=== PATIENT | female | born 1955 | race Two or more races ===

== ENCOUNTER → 2016-09-10 | Day surgery (SDC) | payer OTHER ==
[~2016-09-10] VITALS: Ht 154.9 cm; Wt 79.2 kg
[~2016-09-10] MED LIST: ATOR10TA15 PO; BACITRACIN TOP OINT 15 GM TUBE ONE; BUPIVACAINE/EPINEPHRINE 0.25% 50 ML VIAL ONE; CHLORHEXIDINE GLUCONATE 2 % 1 PACK (2 CLOTHS) TOPICAL PRN; DO NOT ADM ANY ANTICOAGULANT DRUGS PRN; FAMOTIDINE 20 MG/2 ML VIAL ONE; GLIM2TAB PO; HYDR12.57 PO; INSULIN HUMAN REGULAR 1,000 UNITS/10 ML VIAL SQ PRN; KETOROLAC TROMETHAMINE 60 MG/2 ML (IM) VIAL IM ONE; LACTATED RINGER'S 1000 ML IV PRN; LOSA50TA PO; METF1000 PO; METOPROLOL TARTRATE 25 MG TAB PO PRN; MIDAZOLAM HCL 2 MG/2 ML VIAL ONE; ONDANSETRON HCL 4 MG/2 ML VIAL IV PUSH ONE; POVIDONE IODINE 5% (ANTISEPSIS KIT) 4 APPLICATIONS EACH NARE PRN; PROPOFOL 200 MG/20 ML AMP IV ONE; SILVER NITR/POTASSIUM NITRATE APPLICATORS TOPICAL ONE; SODIUM CHLORID 0.9% 500 ML IV PRN; ceFAZolin 1,000 MG/NS 100 ML IV SCH; oxyCODONE/ACETAMINOPHEN 5 MG/325 MG TAB PO PRN
[2016-09-10 06:02] VITALS: BP 160/91; PULSE 60; RESP 18; TEMP 98.3; O2SAT 100
--- NOTE | 2016-09-10 07:02 | EKG ---
Date Performed: 09/10/2016 Time Performed: 06:29:37 PTAGE: 61 years EKG: SINUS BRADYCARDIA NONSPECIFIC T-WAVE ABNORMALITY BORDERLINE ECG No significant change from prior electrocardiogram. PREVIOUS TRACING : 09/05/2006 13.28 DOCTOR: Say Holley Interpretating Date/Time 09/10/2016 07:01:57
--- NOTE | 2016-09-10 08:19 | PD.OP ---
Operative Report Date of Surgery: Sep 10, 2016 Preoperative Diagnosis: (1) Pruritus vulvae (2) Disorder of vulva (3) Atrophic vulva Postoperative Diagnosis: (1) Pruritus vulvae (2) Disorder of vulva (3) Atrophic vulva Procedure: Vulvar biopsy Anesthesia: General Surgeon: Oly Stephens Bead Worker Sewing(s): OR staff Operation and Findings: IVF: 800 ml LR + IV antibiotics given prior to surgery UO: none EBL: < 10 ml Findings: vulvar lesions Specimens: 2 vulvar biopsies Complications: none Condition: stable Descriptions of the procedure: I discussed the risks, benefits and alternatives of the procedure with the patient. Informed consent was obtained after questions were answered. She was then taken to the operating room with her IV running. She was placed in the supine position and was given general anesthesia without difficulties or complications. She was then placed in the dorsal lithotomy position and was prepped and draped in the usual sterile fashion. The vulvar lesions were identified. Local anesthetic was injected at their base. Two punch biopsies were carefully obtained. Hemostasis was achieved with silver nitrate. The patient tolerated the procedure well. She was successfully extubated and transferred to PACU in stable condition. Note: I discussed surgical findings and procedure with the patient's . His questions were answered. He verbalized understanding and agreement to the procedure done. Oly Stephens MD Sep 10, 2016 08:19
[2016-09-10 10:20] VITALS: BP 160/90; PULSE 56; RESP 16; TEMP 97.7; O2SAT 100
== END | disposition home or self-care (01) ==
LOC: HSDC 05:11
PROVIDERS: ATTEND Obstetrics & Gynecology
DX: L29.2 Pruritus vulvae (principal); N90.5 Atrophy of vulva; N90.9 Noninflammatory disorder of vulva and perineum, unspecified; Z01.810 Encounter for preprocedural cardiovascular examination
CPT/HCPCS: 00940; 56605; 56606; 88305; 93005; J0690; J1885; J2250; J2405; J3010; J7120